=== PATIENT | female | born 1985 ===

== ENCOUNTER 2021-09-27 06:00 | Inpatient (IN) | payer MEDICAID ==
[~2021-09-27] VITALS: Ht 152.4 cm; Wt 71.9 kg
[2021-09-27] VITALS (30 sets, daily range): BP systolic 95–139; BP diastolic 50–80
[~2021-09-27 06:00] MED LIST: ACHD5005 PO; IBUP-1773 PO
[2021-09-27] MEDS ORDERED: OXYTOCIN PRE-MIX DRIP 500 ML IV SCH (07:30)
[2021-09-27] MEDS ORDERED: NS IV 1000 ML 1,000 ML IV SCH (07:30)
[2021-09-27] MEDS ORDERED: MINERAL OIL 30 ML TOP PRN (07:30)
[2021-09-27 08:03] LABS: BASOPHILS % (AUTO) 1 % (0-10); EOSINOPHILS # (AUTO) 0.1 10^3/uL (0.0-0.3); EOSINOPHILS % (AUTO) 1 % (0-10); HEMATOCRIT 36 % (35-52); HEMOGLOBIN 11.9 g/dL (11.5-16.0); LYMPHOCYTES # (AUTO) 2.6 10^3/uL (1.0-4.0); LYMPHOCYTES % (AUTO) 33 % (12-44); MEAN CORPUSCULAR HEMOGLOBIN 28 pg (25-34); MEAN CORPUSCULAR HGB CONC 33 g/dL (32-36); MEAN CORPUSCULAR VOLUME 84 fL (80-99); MEAN PLATELET VOLUME 11.2 fL (9.0-12.2); MONOCYTES # (AUTO) 0.7 10^3/uL (0.0-1.0); MONOCYTES % (AUTO) 9 % (0-12); NEUTROPHILS # (AUTO) 4.6 10^3/uL (1.8-7.8); NEUTROPHILS % (AUTO) 57 % (42-75); PLATELET COUNT 222 10^3/uL (130-400); WHITE BLOOD COUNT 8.1 10^3/uL (4.3-11.0)
[2021-09-27] MEDS ORDERED: PREN1TAB19 PO (08:19)
--- NOTE | 2021-09-27 08:23 | History & Physical-OB ---
OB - Chief Complaint & HPI Date/Time Date of Admission: Date of Admission: Sep 27, 2021 at 06:04 Date seen by a Provider: Sep 27, 2021 Time Seen by a Provider: 07:50 Chief Complaint/History OB-Reason for Admission/Chief: Obstetrical Complication Hx : 4 Hx Para: 3 Expected Date of Delivery: Sep 30, 2021 Gestational Age in Weeks: 39 Gestational Age in Days: 4 Indication for induction: maternal distance, medical complication History of Labs O+, antibody neg, RI. HIV/HepB/RPR NR. GC/chlamydia neg. 3 hour glucose tolerance with 2/4 elevated. GBS neg. Other at 39w4d, admitted for IOL due to GDMA1, well controlled as well as living an hour or more from the hospital. EFW on BPP 09/21/21 [id number]. Anemia with hemoglob in 9.2 at 28 week labs, iron recommended, but she has not been taking regularly. Allergies and Home Medications Allergies Coded Allergies: No Known Allergies (Verified Allergy, Unknown, 04/19/15) Patient Home Medication List Home Medication List Reviewed: Yes Vit/Iron Fumarate/FA ( Vitamins Tablet) 28 Mg Iron-800 Mcg Tablet, 1 EACH PO DAILY, (Reported) Entered as Reported by: NANCY AGRCIA on 09/27/21 0819 Last Action: New Order Discontinued Medications Hydrocodone Bit/Acetaminophen (Lortab 5 Mg Tablet) 1 Each Tablet, 1 TAB PO Q4H PRN for PAIN Prescribed by: YAZMIN FOFANA on 04/20/15 1333 Last Action: Discontinued Ibuprofen (Ibuprofen) 600 Mg Tablet, 600 MG PO Q6H Prescribed by: YAZMIN FOFANA on 04/20/15 1333 Last Action: Discontinued OB - History Hx of Present Care: Yes Ultrasounds: Normal mid trimester US Obstetrical Complications: Gestational Diabetes Medical Complications: None Information Induced Hypertension: No Maternal Gestational Diabetes: Yes Hemorrhage: No Obstetrical History Hx : 4 Hx Para: 3 Hx # Term Pregnancies: 3 Hx # Pregnancies: 0 Number of Living Children: 3 Hx Termination: No Hx Multiple Gestation: No Hx Ectopic : No Hx Stillbirth: No Hx Complication: No Hx Induced Hypertens: No Hx Maternal Gestational Diabet: No Hx Hemorrhage: No Delivery History Hx Dystocia: No Hx Forceps Assisted Delivery: No Hx Vacuum Extraction Assisted: No Hx Placenta Abnormality: No Hx Distress: No Hx Large For Gestational Age I: No Hx Small for Gestational Age I: No Hx Section: No Hx Vaginal Delivery Post C-Sec: No Hx Blood Disorders: No Adverse Rxn to Tranfusion: No Patient Past Medical History denies PMH/PSH Social History/Family History Alcohol Use: Denies Use Recreational Drug Use: No Smoking Cessation: Never smoker Immunizations Influenza Vaccine Up-to-Date: No; Not Current First/Initial COVID19 Vaccine: 04/12/21 Second COVID19 Vaccination: 06/01/21 Hepatitis A: No Hepatitis B: No Tetanus Booster (TDap): Less than 5yrs (07/27/21) Rubella: immune RPR/VDRL: Negative GBS Status: Negative HBsAG: Negative OB - Admission Exam Physical Exam HEENT: NCAT Abdomen: Non tender Extremities: Normal Cervical Dilatation: 4cm Effacement: 50% Station: -2 Membranes: Ruptured (AROM at time of exam) Amniotic Fluid: Clear Heart Rate: 120's Accelerations: Accelerations Present Decelerations: No Decelerations Short Term Variability: Present Sample Paster Variability: Average (6-25) Contractions on Admission: < 5 Minutes Apart Rush Scoring Tool (Modified) Dilation (cm): 3-4cm (2) Effacement (%): 51-79% (2) Descent/Station: -2 (1) Cervix Consistency: Soft (2) Cervix Position: Anterior (2) Add 1 point for: Each previous vaginal delivery (1) (3) Rush Score: 12 Labs Laboratory Tests Test 09/27/21 07:45 Range/Units White Blood Count 8.1 4.3-11.0 10^3/uL Red Blood Count 4.30 3.80-5.11 10^6/uL Hemoglobin 11.9 11.5-16.0 g/dL Hematocrit 36 35-52 % Mean Corpuscular Volume 84 80-99 fL Mean Corpuscular Hemoglobin 28 25-34 pg Mean Corpuscular Hemoglobin Concent 33 32-36 g/dL Red Cell Distribution Width 20.7 H 10.0-14.5 % Platelet Count 222 130-400 10^3/uL Mean Platelet Volume 11.2 9.0-12.2 fL Immature Granulocyte % (Auto) 0 % Neutrophils (%) (Auto) 57 42-75 % Lymphocytes (%) (Auto) 33 12-44 % Monocytes (%) (Auto) 9 0-12 % Eosinophils (%) (Auto) 1 0-10 % Basophils (%) (Auto) 1 0-10 % Neutrophils # (Auto) 4.6 1.8-7.8 10^3/uL Lymphocytes # (Auto) 2.6 1.0-4.0 10^3/uL Monocytes # (Auto) 0.7 0.0-1.0 10^3/uL Eosinophils # (Auto) 0.1 0.0-0.3 10^3/uL Basophils # (Auto) 0.0 0.0-0.1 10^3/uL Immature Granulocyte # (Auto) 0.0 0.0-0.1 10^3/uL OB - Assessment/Plan/Diagnosis Assessment Admission Dx Term intrauterine at 39w4d Gestational diabetes, diet controlled Rubella immune GBS negative Admission Status: Inpatient Order (span 2 midnights) Reason for Inpatient Admission: Labor, delivery and course Plan Plan: Induction Induction Method: NANCY UGARTE MD Sep 27, 2021 08:23
[2021-09-27] MEDS ORDERED: fentaNYL INJ 100 MCG/2 ML AMP IVP PRN (09:00)
[2021-09-27] MEDS ORDERED: CATHETER FLUSH 10 ML SYR IV SCH (14:00)
[2021-09-27] MEDS ORDERED: LIDOCAINE/EPI 2% 1:200,00 (XYLOCAINE) 10 ML VIAL ONE (14:40)
[2021-09-27] MEDS: OXYTOCIN PRE-MIX DRIP 500 ML IV SCH ×2 (15:25→15:56)
--- NOTE | 2021-09-27 15:42 | OB Labor & Delivery Record ---
Vag Delivery Note Vag Delivery Note Date of Delivery: 09/27/21 Preoperative Diagnosis: Luz Elena Thakkar is a (35 /Para 4 / 3, Gestational Age (wks)39with 5 days, gestational diabetes diet controlled Postoperative Diagnosis: Same Surgeon: NANCY GARCIA Side Sawyer: Joyce Orozco, MS2 Anesthesia: None Delivery Type: Findings: Viable female , apgars 8/9, weight 7#14 Lacerations: first degree perineal laceration Intact placenta with 3 vessel cord. Brief shoulder dystocia relieved with McRobert's and suprapubic pressure, 40 seconds from head to delivery of shoulder. No nuchal cord or body cord. Estimated Blood Loss: 300 ml Complications: None Condition: Stable Description of Procedure: The patient is a 35 year old female who presented for IOL for GDMA1 well controlled. She was admitted and informed consent was obtained. Her labor course was unremarkable. She progressed to complete dilatation and began to push. She was then set up for delivery. The 's head was delivered atraumatically in the ROSA M position. The anterior shoulder did not deliver easily, and M cRobert's positioning was used, head of bed lowered and shoulder still did not deliver, so suprapubic pressure form the 's anterior shoulder back side was applied with successful delivery of anterior shoulder at 40 seconds after head delivery. Posterior shoulder and remainder of the infant's body were then delivered without difficulty. Upon delivery, the was placed on maternal abdomen. The cord was doubly clamped and cut and the remained on maternal abdomen. An intact placenta with 3-vessel cord delivered via Yodit and there was found to be minimal bleeding.~ Vigorous fundal massage was performed and the fundus was found to be firm. IV oxytocin was given. Examination of the vagina and perineum revealed a very short first degree laceration not requiring repair. Following the delivery, sponge, instrument and needle counts were correct. Mom and baby were both in stable condition in the labor suite. Vitals - Labs Vital Signs - I&O Vital Signs Date Time Temp Pulse Resp B/P (MAP) Pulse Ox O2 Delivery O2 Flow Rate FiO2 09/27/21 13:50 83 139/65 (89) 09/27/21 13:35 82 114/80 (91) 09/27/21 13:20 36.5 85 18 105/60 (75) 09/27/21 13:05 74 127/68 (87) 09/27/21 12:50 91 96/63 (74) 09/27/21 12:35 82 113/68 (83) 09/27/21 12:20 75 108/55 (72) 09/27/21 12:05 86 109/62 (78) 09/27/21 11:20 78 122/73 (89) 09/27/21 11:05 81 110/69 (83) 09/27/21 10:50 75 112/68 (83) 09/27/21 10:35 95 105/73 (84) 09/27/21 10:20 84 108/70 (83) 09/27/21 10:00 36.6 76 18 120/70 (87) Room Air 09/27/21 07:30 35.8 103 18 100 Room Air Labs Laboratory Tests 09/27/21 07:45: White Blood Count 8.1, Red Blood Count 4.30, Hemoglobin 11.9, Hematocrit 36, Mean Corpuscular Volume 84, Mean Corpuscular Hemoglobin 28, Mean Corpuscular H emoglobin Concent 33, Red Cell Distribution Width 20.7H, Platelet Count 222, Mean Platelet Volume 11.2, Immature Granulocyte % (Auto) 0, Neutrophils (%) (Auto) 57, Lymphocytes (%) (Auto) 33, Monocytes (%) (Auto) 9, Eosinophils (%) (Auto) 1, Basophils (%) (Auto) 1, Neutrophils # (Auto) 4.6, Lymphocytes # (Auto) 2.6, Monocytes # (Auto) 0.7, Eosinophils # (Auto) 0.1, Basophils # (Auto) 0.0, Immature Granulocyte # (Auto) 0.0, Glucose Level 70 Shoulder Dystocia Note Shoulder Dystocia Start Time of Delivery of HEAD: 15:19 Time shoulder dystocia called: 15:19 HOB in lowered position: Yes Time of delivery of BODY: 15:20 Positional Maneuvers Zaida, Suprapubic: Left NANCY GARCIA MD Sep 27, 2021 15:42
[2021-09-27] MEDS ORDERED: BENZOCAINE/MENTHOL (DERMOPLAST) 56 ML CAN TP PRN (16:00)
[2021-09-27] MEDS ORDERED: WITCH HAZEL(TUCKS) 40 EA JAR TOP PRN (16:00)
[2021-09-27] MEDS: IBUPROFEN 600 MG (MOTRIN) TAB PO SCH ×2 (18:32→23:32)
[2021-09-27] MEDS: DOCUSATE SODIUM 100 MG (COLACE) CAP PO SCH (20:07)
[2021-09-27] MEDS: CATHETER FLUSH 10 ML SYR IV SCH (20:07)
[2021-09-28 00:05] VITALS: BP 98/59
[2021-09-28 03:58] VITALS: BP 99/51
[2021-09-28] MEDS: CATHETER FLUSH 10 ML SYR IV SCH (05:22)
[2021-09-28] MEDS: IBUPROFEN 600 MG (MOTRIN) TAB PO SCH ×2 (05:22→12:00)
[2021-09-28] MEDS ORDERED: IBUP-844 PO (06:39)
[2021-09-28 06:40] LABS: BASOPHILS % (AUTO) 0 % (0-10); EOSINOPHILS # (AUTO) 0.1 10^3/uL (0.0-0.3); EOSINOPHILS % (AUTO) 1 % (0-10); HEMATOCRIT 31 % (35-52); HEMOGLOBIN 9.8 g/dL (11.5-16.0); LYMPHOCYTES # (AUTO) 2.3 10^3/uL (1.0-4.0); LYMPHOCYTES % (AUTO) 24 % (12-44); MEAN CORPUSCULAR HEMOGLOBIN 28 pg (25-34); MEAN CORPUSCULAR HGB CONC 32 g/dL (32-36); MEAN CORPUSCULAR VOLUME 87 fL (80-99); MEAN PLATELET VOLUME 11.9 fL (9.0-12.2); MONOCYTES # (AUTO) 0.8 10^3/uL (0.0-1.0); MONOCYTES % (AUTO) 8 % (0-12); NEUTROPHILS # (AUTO) 6.6 10^3/uL (1.8-7.8); NEUTROPHILS % (AUTO) 67 % (42-75); PLATELET COUNT 215 10^3/uL (130-400); WHITE BLOOD COUNT 9.9 10^3/uL (4.3-11.0)
[2021-09-28] MEDS ORDERED: FERR-74 PO (06:59)
[2021-09-28 10:00] VITALS: BP 102/55
[2021-09-28] MEDS: DOCUSATE SODIUM 100 MG (COLACE) CAP PO SCH (10:00)
--- NOTE | 2021-09-28 11:04 | Discharge Summary ---
Discharge Summary Hospital Course Problems/Diagnosis: (1) Acute blood loss anemia Status: Acute Assessment & Plan: , asymptomatic, ferrous sulfate 325 mg daily. (2) (spontaneous vaginal delivery) Status: Acute Assessment & Plan: Routine care (3) Gestational diabetes Status: Acute Assessment & Plan: Repeat diabetes testing in 6 weeks Qualifiers: Qualified Codes: O24.410 - Gestational diabetes mellitus in , diet controlled Hospital Course Date of Admission: Sep 27, 2021 at 06:04 Admission Diagnosis : Family Physician/Provider: Date of Discharge: 09/28/21 Discharge Diagnosis: See problem list Hospital Course: G4 now P4 admitted for IOL at 39w4d due to GDMA1 well controlled, had unremarkable induction with with shoulder dystocia of 40 seconds. Unremarkable course. Labs and Pending Lab Test: Laboratory Tests 09/28/21 05:29: White Blood Count 9.9, Red Blood Count 3.54L, Hemoglobin 9.8L, Hematocrit 31L, Mean Corpuscular Volume 87, Mean Corpuscular Hemoglobin 28, Mean Corpuscular Hemoglobin Concent 32, Red Cell Distribution Width 20.9H, Platelet Count 215, Mean Platelet Volume 11.9, Immature Granulocyte % (Auto) 0, Neutrophils (%) (Auto) 67, Lymphocytes (%) (Auto) 24, Monocytes (%) (Auto) 8, Eosinophils (%) (Auto) 1, Basophils (%) (Auto) 0, Neutrophils # (Auto) 6.6, Lymphocytes # (Auto) 2.3, Monocytes # (Auto) 0.8, Eosinophils # (Auto) 0.1, Basophils # (Auto) 0.0, Immature Granulocyte # (Auto) 0.0 Home Meds Active Ferrous Sulfate 325 Mg (65 Mg Iron) Tablet 325 Mg PO DAILY Ibu (Ibuprofen) 600 Mg Tablet 600 Mg PO Q6HR PRN Reported Vitamins Tablet ( Vit/Iron Fumarate/FA) 28 Mg Iron-800 Mcg Tablet 1 Each PO DAILY Assessment/Pt DC Instructions Follow up in 6 weeks for visit. Discharge Diet: No Restrictions Activity as Tolerated: Yes (avoid strenuous activity x 6 weeks) Discharge Physical Examination Allergies: Coded Allergies: No Known Allergies (Verified Allergy, Unknown, 04/19/15) General Appearance: No Apparent Distress, WD/WN Respiratory: Lungs Clear, Normal Breath Sounds Cardiovascular: Regular Rate, Rhythm, No Murmur Gastrointestinal: Other (fundus firm below umbilicus, appropriate ttp) Extremity: No Pedal Edema Skin: Warm/Dry Neurologic/Psychiatric: Alert, Normal Mood/Affect NANCY GARCIA MD Sep 28, 2021 11:04
[2021-09-28 16:00] VITALS: BP 100/58
== END 2021-09-28 19:41 | disposition home or self-care (01) | DRG 806 ==
LOC: LDRP 06:04
PROVIDERS: ADMIT Family Medicine; ATTEND Family Medicine
PROC: 10E0XZZ Delivery of Products of Conception, External Approach (ICD-10-PCS; principal; 2021-09-27)
PROC: 0HQ9XZZ Repair Perineum Skin, External Approach (ICD-10-PCS; 2021-09-27)
DX: O24.420 Gestational diabetes mellitus in childbirth, diet controlled (principal); D62 Acute posthemorrhagic anemia; Z37.0 Single live birth; O70.0 First degree perineal laceration during delivery; O66.0 Obstructed labor due to shoulder dystocia; O90.81 Anemia of the puerperium; Z3A.39 39 weeks gestation of pregnancy
CPT/HCPCS: 36415; 82947; 85025; 86850; 86900; 86901